=== PATIENT | female | born 1985 | race Caucasian/White ===

== ENCOUNTER 2023-10-25 06:43 | Emergency (ER) | payer BC ==
[~2023-10-25] VITALS: Ht 160 cm; Wt 64.3 kg
[~2023-10-25 06:43] MED LIST: LIDO20SO16 PO
== END 2023-10-25 07:26 | disposition home or self-care (01) ==
LOC: MERGE 06:43 → ER 06:43
DX: S60.011A Contusion of right thumb without damage to nail, initial encounter (principal); Z79.899 Other long term (current) drug therapy; X58.XXXA Exposure to other specified factors, initial encounter; Y93.67 Activity, basketball; Y92.89 Other specified places as the place of occurrence of the external cause; Y99.8 Other external cause status
CPT/HCPCS: 73130; 99283; A4565; A6449

== ENCOUNTER 2023-10-26 11:51 | Outpatient (CLI) | payer BC | END 2023-10-26 23:59 | disposition home or self-care (01) | LOC: MERGE 11:51 → MRI 11:51 | PROVIDERS: ATTEND Physician Assistant | DX: S53.31XA Traumatic rupture of right ulnar collateral ligament, initial encounter (principal); S69.81XA Other specified injuries of right wrist, hand and finger(s), initial encounter; M79.644 Pain in right finger(s); X58.XXXA Exposure to other specified factors, initial encounter; Y93.89 Activity, other specified; Y92.89 Other specified places as the place of occurrence of the external cause; Y99.8 Other external cause status; M25.441 Effusion, right hand | CPT/HCPCS: 73218 ==

== ENCOUNTER 2023-11-29 07:42 | Day surgery (SDC) | payer BC ==
[2023-11-24 15:34] LABS: BASOPHILS % (AUTO) 0.8 % (0-1); EOSINOPHILS # (AUTO) 0.1 X10'3 (0-0.9); LYMPHOCYTES # (AUTO) 1.8 X10'3 (1.1-4.8); LYMPHOCYTES % (AUTO) 28.4 % (21-51); MEAN CORPUSCULAR HEMOGLOBIN 32.3 PG (27.0-31.0); MEAN CORPUSCULAR HGB CONC 34.6 g/dL (33.0-36.5); MEAN CORPUSCULAR VOLUME 93.4 FL (78-98); MEAN PLATELET VOLUME 8.1 FL (7.4-10.4); MONOCYTES # (AUTO) 0.5 X10'3 (0-0.9); MONOCYTES % (AUTO) 8.1 % (2-12); NEUTROPHILS # (AUTO) 3.8 X10'3 (1.8-7.7); NEUTROPHILS % (AUTO) 61.7 % (42-75); PRE OP HEMATOCRIT 39.5 % (35.0-45.0); PRE OP HEMOGLOBIN 13.7 g/dL (12.0-16.0); PRE OP PLATELET COUNT 257 X10'3 (140-440); PRE OP WHITE BLOOD COUNT 6.2 10'3 (4.8-10.8); RED BLOOD COUNT 4.23 X10'6 (4.20-5.60); RED CELL DISTRIBUTION WIDTH 12.7 % (11.5-14.5)
[2023-11-24 16:34] LABS: HCG SERUM QL NEGATIVE
[2023-11-24 16:38] LABS: ALBUMIN/GLOBULIN RATIO 1.3 (1.1-1.5); ALKALINE PHOSPHATASE 52 IU/L (46-116); BLOOD UREA NITROGEN 17 MG/DL (7-18); BUN/CREATININE RATIO 23.3 (10.0-20.0); CALCIUM 9.2 MG/DL (8.5-10.1); CHLORIDE 103 MMOL/L (99-107); CREATININE 0.73 MG/DL (0.40-0.90); PRE OP ALT 19 U/L (30-65); PRE OP ANION GAP 9 (8-16); PRE OP AST 16 U/L (10-37); PRE OP GLUCOSE 90 MG/DL (70-104); PRE OP POTASSIUM 3.6 MMOL/L (3.4-5.1); PRE OP SODIUM 142 MMOL/L (135-145); TOTAL PROTEIN 7.1 G/DL (6.4-8.2); eGFR 89 ML/MIN
[2023-11-29] VITALS (9 sets, daily range): BP systolic 98–122; BP diastolic 66–81; PULSE 41–64; RESP 11–16; TEMP 99.3; O2SAT 98–100
[~2023-11-29] VITALS: Ht 160 cm; Wt 63.1 kg
[2023-11-29] MEDS: cefazolin 2gm/D5W 100mL 100 ML IV ONE (05:30)
[~2023-11-29 07:42] MED LIST changes: -LIDO20SO16 PO; +NO HOME MEDS
[2023-11-29] MEDS: ringers solution, lacted 1,000 ML IV SCH (08:30)
[2023-11-29] MEDS: famotidine 20mg tablet PO ONE (08:30)
[2023-11-29] MEDS ORDERED: BUPIVAcaine/PF 2.5mg/ml (0.25%) 10ml vial ONE (12:22)
[2023-11-29] MEDS ORDERED: MIDAZolam 1 MG/ML 5ML VIAL ONE (12:28)
[2023-11-29] MEDS ORDERED: fentaNYL/PF 50MCG/1 ML 2ML syringe ONE (12:28)
[2023-11-29] MEDS ORDERED: LIDOcaine 0.5% (5mg/ml) 50ml vial ONE (12:29)
[2023-11-29] MEDS ORDERED: ketorolac trometh 30MG/ML vial 30 MG/ML VIAL ONE (12:29)
[2023-11-29] MEDS ORDERED: propofol inj 20 ML IV ONE (12:40)
[2023-11-29] MEDS ORDERED: morphine 2 MG/ML inj. syringe IV PRN (13:00)
[2023-11-29] MEDS ORDERED: morphine 4 MG/ML inj SYRINge IV PRN (13:00)
[2023-11-29] MEDS ORDERED: ondansetron/PF 4mg/2ml inj IV PRN (13:00)
[2023-11-29] MEDS ORDERED: ringers solution, lacted 1,000 ML IV SCH (13:00)
[2023-11-29] MEDS ORDERED: hydrALAZINE 20mg/ml inj. IV PRN (13:00)
== END 2023-11-29 14:35 | disposition home or self-care (01) ==
LOC: PRE-OP 07:42
PROVIDERS: ATTEND Orthopaedic Surgery Hand Surgery
DX: S63.641A Sprain of metacarpophalangeal joint of right thumb, initial encounter (principal); Z98.890 Other specified postprocedural states; Z88.8 Allergy status to other drugs, medicaments and biological substances; Z82.49 Family history of ischemic heart disease and other diseases of the circulatory system; X58.XXXA Exposure to other specified factors, initial encounter; Y93.89 Activity, other specified; Y92.89 Other specified places as the place of occurrence of the external cause; Y99.8 Other external cause status
CPT/HCPCS: 26540; 36415; 80053; 82948; 84703; 85025; J0690; J1885; J2250; J2704; J3010; J3490; J7030; J7120; Z7506; Z7512; A4215; A4618; A6449; A7000

== ENCOUNTER 2024-07-13 09:53 | Emergency (ER) | payer BC ==
[~2024-07-13] VITALS: Ht 161.3 cm; Wt 65.9 kg
[2024-07-13 09:54] VITALS: BP 126/79; PULSE 69; RESP 18; O2SAT 97
[2024-07-13 11:10] VITALS: TEMP 97.3
== END 2024-07-13 11:11 | disposition home or self-care (01) ==
LOC: ER 09:54
DX: S62.397A Other fracture of fifth metacarpal bone, left hand, initial encounter for closed fracture (principal); X58.XXXA Exposure to other specified factors, initial encounter; Y93.61 Activity, american tackle football; Y92.89 Other specified places as the place of occurrence of the external cause; Y99.8 Other external cause status
CPT/HCPCS: 29130; 73140; 99283